=== PATIENT | male | born 1945 ===

== ENCOUNTER 2016-11-03 22:56 | Inpatient (IN) | payer MEDICARE ==
[~2016-11-03] VITALS: Ht 177.8 cm; Wt 87.0 kg
[2016-11-03] MEDS ORDERED: QUEtiapine FUMARATE 100 MG TABLET PO PRN (23:15)
[2016-11-03] MEDS ORDERED: ZOLPIDEM TARTRATE 10 MG TABLET PO PRN (23:15)
[2016-11-03] MEDS ORDERED: LORazepam 2 MG TABLET PO PRN (23:15)
[2016-11-03 23:30] VITALS: BP 145/78
[2016-11-04] MEDS ORDERED: PNEUMOCOCCAL VACCINE POLYVALENT 0.5 ML VIAL [PPSV23] IM ONE (03:15)
[2016-11-04] MEDS ORDERED: INFLUENZA VIRUS VACCINE QVS 2016-17 (3YR+)/PF 60 MCG/0.5 ML SYRINGE IM ONE (03:15)
[2016-11-04 06:54] LABS: BASOPHILS % (AUTO) 0.8 % (0.0-2.0); EOSINOPHILS % (AUTO) 3.7 % (1.0-6.0); HEMATOCRIT 37.3 % (41-53); HEMOGLOBIN 11.9 g/dL (13.5-17.5); LYMPHOCYTES # (AUTO) 1.4 K/uL (1.0-4.8); LYMPHOCYTES % (AUTO) 22.1 % (22.0-44.0); MEAN CORPUSCULAR HEMOGLOBIN 28.8 pg (26.0-34.0); MEAN CORPUSCULAR VOLUME 90 fL (80-100); MONOCYTES # (AUTO) 0.7 K/uL (0.1-1.0); MONOCYTES % (AUTO) 10.4 % (2.0-9.0); NEUTROPHILS # (AUTO) 4.1 K/uL (1.8-7.7); PLATELET COUNT (AUTO) 394 K/uL (150-450); RED BLOOD CELL COUNT(AUTO) 4.15 MIL/uL (4.50-5.90); RED CELL DISTRIBUTION WIDTH 13.1 % (11.5-14.5); WHITE BLOOD COUNT (AUTO) 6.5 K/uL (4.5-11.0)
[2016-11-04 07:08] LABS: ALANINE AMINOTRANSFERASE 22 U/L (12-78); ALBUMIN 2.9 g/dL (3.4-5.0); ANION GAP 9 mmol/L (8-16); ASPARTATE AMINOTRANSFERASE 16 U/L (15-37); BILIRUBIN,TOTAL 0.3 mg/dL (0.1-1.0); CALCIUM, TOTAL 8.4 mg/dL (8.8-10.5); CARBON DIOXIDE 26 mmol/L (22-29); CHLORIDE 105 mmol/L (98-107); CREATININE 0.67 mg/dL (0.60-1.30); GLOMERULAR FILTR. RATE CALC > 60 mL/min (>60); POTASSIUM 3.8 mmol/L (3.5-5.1); SODIUM SERUM 140 mmol/L (136-145); UREA NITROGEN, BLOOD 16 mg/dL (7-18)
[2016-11-04 08:00] VITALS: BP 140/97
[2016-11-04 16:42] VITALS: BP 144/87
[2016-11-04] MEDS: QUEtiapine FUMARATE 25 MG TABLET PO SCH (21:19)
[2016-11-05 06:53] VITALS: BP 142/89
[2016-11-05 06:56] LABS: BASOPHILS % (AUTO) 0.5 % (0.0-2.0); EOSINOPHILS % (AUTO) 1.8 % (1.0-6.0); HEMATOCRIT 36.3 % (41-53); HEMOGLOBIN 11.8 g/dL (13.5-17.5); LYMPHOCYTES # (AUTO) 1.5 K/uL (1.0-4.8); LYMPHOCYTES % (AUTO) 16.2 % (22.0-44.0); MEAN CORPUSCULAR HEMOGLOBIN 28.8 pg (26.0-34.0); MEAN CORPUSCULAR HGB CONC 32.3 G/dL (31.0-37.0); MEAN CORPUSCULAR VOLUME 89 fL (80-100); MONOCYTES # (AUTO) 0.8 K/uL (0.1-1.0); MONOCYTES % (AUTO) 8.8 % (2.0-9.0); NEUTROPHILS # (AUTO) 6.7 K/uL (1.8-7.7); NEUTROPHILS % (AUTO) 72.7 % (40.0-70.0); PLATELET COUNT (AUTO) 389 K/uL (150-450); RED BLOOD CELL COUNT(AUTO) 4.08 MIL/uL (4.50-5.90); RED CELL DISTRIBUTION WIDTH 13.5 % (11.5-14.5); WHITE BLOOD COUNT (AUTO) 9.2 K/uL (4.5-11.0)
[2016-11-05 07:15] LABS: ALANINE AMINOTRANSFERASE 23 U/L (12-78); ALBUMIN 2.9 g/dL (3.4-5.0); ANION GAP 6 mmol/L (8-16); ASPARTATE AMINOTRANSFERASE 17 U/L (15-37); BILIRUBIN,TOTAL 0.2 mg/dL (0.1-1.0); CALCIUM, TOTAL 8.1 mg/dL (8.8-10.5); CARBON DIOXIDE 30 mmol/L (22-29); CHLORIDE 106 mmol/L (98-107); CHOL/HDL RATIO 3.4 (4.2-7.3); CREATINE KINASE, TOTAL 51 U/L (39-308); CREATININE 0.77 mg/dL (0.60-1.30); GLOMERULAR FILTR. RATE CALC > 60 mL/min (>60); POTASSIUM 3.9 mmol/L (3.5-5.1); SODIUM SERUM 142 mmol/L (136-145); THYROID STIMULATING HORMONE 3.76 uIU/mL (0.36-3.74); TOTAL PROTEIN, SERUM 7.1 g/dL (6.4-8.2); UREA NITROGEN, BLOOD 15 mg/dL (7-18)
[2016-11-05 09:04] VITALS: BP 132/92
[2016-11-05 09:05] LABS: ERYTHROCYTE SEDIMENTATION RATE 30 MM/HR (0-15)
[2016-11-05] MEDS: ASPIRIN 81 MG EC TABLET PO SCH (10:33)
[2016-11-05 14:29] LABS: APPEARANCE,URINE CLEAR (CLEAR); GLUCOSE, URINE (UA) NEGATIVE (NEGATIVE); KETONES,URINE NEGATIVE (NEGATIVE); LEUKOCYTE ESTERASE ,URINE NEGATIVE (NEGATIVE); OCCULT BLOOD,URINE TRACE (NEGATIVE); PROTEIN,URINE NEGATIVE (NEGATIVE)
[2016-11-05 14:31] LABS: ADD UA MICROSCOPIC YES
[2016-11-05 14:41] LABS: RBC,URINE 0-2 /HPF (0-2); SQUAMOUS EPITHELIAL CELL,UR None Seen /LPF (None Seen); WBC,URINE None Seen /HPF (0-5)
[2016-11-05 17:00] VITALS: BP 154/100
[2016-11-05] MEDS: MEMANTINE HCL 5 MG TABLET PO SCH (22:11)
[2016-11-05] MEDS: DONEPEZIL HCL 5 MG TABLET PO SCH (22:11)
[2016-11-05] MEDS: QUEtiapine FUMARATE 25 MG TABLET PO SCH (22:12)
[2016-11-06 02:00] VITALS: BP 125/77
[2016-11-06 08:00] VITALS: BP 153/95
[2016-11-06 09:18] LABS: HEPATITIS Bs ANTIGEN SCREEN P Negative (Negative); HEPATITIS C AB SCREEN 0.3 s/co ratio (0.0-0.9)
[2016-11-06] MEDS: ASPIRIN 81 MG EC TABLET PO SCH (09:47)
[2016-11-06 19:23] VITALS: BP 136/87
[2016-11-06] MEDS: MEMANTINE HCL 5 MG TABLET PO SCH (20:07)
[2016-11-06] MEDS: DONEPEZIL HCL 5 MG TABLET PO SCH (20:07)
[2016-11-06] MEDS: QUEtiapine FUMARATE 25 MG TABLET PO SCH (20:07)
[2016-11-07 03:38] VITALS: BP 128/76
[2016-11-07 08:30] VITALS: BP 151/92
[2016-11-07] MEDS: ASPIRIN 81 MG EC TABLET PO SCH (09:00)
[2016-11-07 16:00] VITALS: BP 138/71
[2016-11-07] MEDS: QUEtiapine FUMARATE 25 MG TABLET PO SCH (21:24)
[2016-11-07] MEDS: DONEPEZIL HCL 5 MG TABLET PO SCH (21:24)
[2016-11-07] MEDS: MEMANTINE HCL 5 MG TABLET PO SCH (21:24)
[2016-11-08 05:02] VITALS: BP 155/98
[2016-11-08 08:22] VITALS: BP 148/97
[2016-11-08] MEDS: ASPIRIN 81 MG EC TABLET PO SCH (08:33)
[2016-11-08 16:43] VITALS: BP 147/90
[2016-11-08] MEDS: DONEPEZIL HCL 5 MG TABLET PO SCH (20:09)
[2016-11-08] MEDS: MEMANTINE HCL 5 MG TABLET PO SCH (20:09)
[2016-11-08] MEDS: QUEtiapine FUMARATE 25 MG TABLET PO SCH (20:09)
[2016-11-09 01:00] VITALS: BP 160/90
[2016-11-09 08:30] VITALS: BP 151/91
[2016-11-09] MEDS: ASPIRIN 81 MG EC TABLET PO SCH (09:12)
[2016-11-09 16:33] VITALS: BP 139/85
[2016-11-09] MEDS: MEMANTINE HCL 5 MG TABLET PO SCH (21:32)
[2016-11-09] MEDS: QUEtiapine FUMARATE 25 MG TABLET PO SCH (21:32)
[2016-11-09] MEDS: DONEPEZIL HCL 5 MG TABLET PO SCH (21:32)
[2016-11-10 05:49] VITALS: BP 148/62
[2016-11-10 08:00] VITALS: BP 153/92
[2016-11-10] MEDS: LISINOPRIL 10 MG TABLET PO SCH (08:31)
[2016-11-10] MEDS: ASPIRIN 81 MG EC TABLET PO SCH (08:31)
[2016-11-10 16:00] VITALS: BP 132/91
[2016-11-10] MEDS: QUEtiapine FUMARATE 25 MG TABLET PO SCH (20:29)
[2016-11-10] MEDS: DONEPEZIL HCL 5 MG TABLET PO SCH (20:29)
[2016-11-10] MEDS: MEMANTINE HCL 5 MG TABLET PO SCH (20:29)
[2016-11-11 08:00] VITALS: BP 153/89
[2016-11-11] MEDS: LISINOPRIL 10 MG TABLET PO SCH (09:13)
[2016-11-11] MEDS: ASPIRIN 81 MG EC TABLET PO SCH (09:13)
[2016-11-11 16:19] VITALS: BP 132/76
[2016-11-11] MEDS: MEMANTINE HCL 5 MG TABLET PO SCH (20:22)
[2016-11-11] MEDS: DONEPEZIL HCL 5 MG TABLET PO SCH (20:22)
[2016-11-11] MEDS: QUEtiapine FUMARATE 25 MG TABLET PO SCH (20:23)
[2016-11-12 08:00] VITALS: BP 150/77
[2016-11-12] MEDS: LISINOPRIL 20 MG TABLET PO SCH (08:36)
[2016-11-12] MEDS: ASPIRIN 81 MG EC TABLET PO SCH (08:37)
[2016-11-12 16:42] VITALS: BP 141/75
[2016-11-12] MEDS: CARVEDILOL 3.125 MG TABLET PO SCH (16:54)
[2016-11-12] MEDS: MEMANTINE HCL 5 MG TABLET PO SCH (20:43)
[2016-11-12] MEDS: DONEPEZIL HCL 5 MG TABLET PO SCH (20:43)
[2016-11-12] MEDS: QUEtiapine FUMARATE 25 MG TABLET PO SCH (20:44)
[2016-11-13 08:00] VITALS: BP 136/91
[2016-11-13] MEDS: LISINOPRIL 20 MG TABLET PO SCH (08:23)
[2016-11-13] MEDS: CARVEDILOL 3.125 MG TABLET PO SCH ×2 (08:23→16:39)
[2016-11-13] MEDS: ASPIRIN 81 MG EC TABLET PO SCH (08:23)
[2016-11-13 16:48] VITALS: BP 134/76
[2016-11-13] MEDS: QUEtiapine FUMARATE 25 MG TABLET PO SCH (20:08)
[2016-11-13] MEDS: DONEPEZIL HCL 5 MG TABLET PO SCH (20:08)
[2016-11-13] MEDS: MEMANTINE HCL 5 MG TABLET PO SCH (20:09)
[2016-11-14 02:40] VITALS: BP 131/79
[2016-11-14] MEDS: LISINOPRIL 20 MG TABLET PO SCH (09:08)
[2016-11-14] MEDS: AmLODIPine BESYLATE 5 MG TABLET PO SCH (09:08)
[2016-11-14] MEDS: CARVEDILOL 3.125 MG TABLET PO SCH ×2 (09:09→18:31)
[2016-11-14] MEDS: ASPIRIN 81 MG EC TABLET PO SCH (09:09)
[2016-11-14 10:28] VITALS: BP 150/91
[2016-11-14 16:06] VITALS: BP 121/78
[2016-11-14] MEDS: DONEPEZIL HCL 5 MG TABLET PO SCH (20:03)
[2016-11-14] MEDS: MEMANTINE HCL 5 MG TABLET PO SCH (20:03)
[2016-11-14] MEDS: QUEtiapine FUMARATE 25 MG TABLET PO SCH (20:03)
[2016-11-15] MEDS: LISINOPRIL 20 MG TABLET PO SCH (08:25)
[2016-11-15] MEDS: AmLODIPine BESYLATE 5 MG TABLET PO SCH (08:25)
[2016-11-15] MEDS: ASPIRIN 81 MG EC TABLET PO SCH (08:26)
[2016-11-15] MEDS: CARVEDILOL 3.125 MG TABLET PO SCH ×2 (08:26→18:36)
[2016-11-15 09:00] VITALS: BP 150/91
[2016-11-15 18:39] VITALS: BP 120/75
[2016-11-15] MEDS: DONEPEZIL HCL 5 MG TABLET PO SCH (20:35)
[2016-11-15] MEDS: MEMANTINE HCL 5 MG TABLET PO SCH (20:35)
[2016-11-15] MEDS: TAMSULOSIN HCL 0.4 MG CAPSULE PO SCH (20:35)
[2016-11-15] MEDS: QUEtiapine FUMARATE 25 MG TABLET PO SCH (20:35)
[2016-11-16 00:30] VITALS: BP 120/80
[2016-11-16 08:00] VITALS: BP 138/87
[2016-11-16] MEDS: ASPIRIN 81 MG EC TABLET PO SCH (09:07)
[2016-11-16] MEDS: CARVEDILOL 3.125 MG TABLET PO SCH ×2 (09:07→16:06)
[2016-11-16] MEDS: AmLODIPine BESYLATE 5 MG TABLET PO SCH (09:07)
[2016-11-16] MEDS: LISINOPRIL 20 MG TABLET PO SCH (09:07)
[2016-11-16 10:18] LABS: APPEARANCE,URINE CLEAR (CLEAR); GLUCOSE, URINE (UA) NEGATIVE (NEGATIVE); KETONES,URINE NEGATIVE (NEGATIVE); LEUKOCYTE ESTERASE ,URINE NEGATIVE (NEGATIVE); OCCULT BLOOD,URINE NEGATIVE (NEGATIVE); PH,URINE 5.5 (5.0-8.0); PROTEIN,URINE NEGATIVE (NEGATIVE)
[2016-11-16 10:19] LABS: ADD UA MICROSCOPIC NO
[2016-11-16 16:50] VITALS: BP 133/89
[2016-11-16] MEDS: QUEtiapine FUMARATE 100 MG TABLET PO SCH (20:03)
[2016-11-16] MEDS: DONEPEZIL HCL 5 MG TABLET PO SCH (20:03)
[2016-11-16] MEDS: MEMANTINE HCL 5 MG TABLET PO SCH (20:03)
[2016-11-16] MEDS: TAMSULOSIN HCL 0.4 MG CAPSULE PO SCH (20:03)
[2016-11-17 08:30] VITALS: BP 112/76
[2016-11-17] MEDS: CARVEDILOL 3.125 MG TABLET PO SCH ×2 (09:49→16:08)
[2016-11-17] MEDS: ASPIRIN 81 MG EC TABLET PO SCH (09:50)
[2016-11-17] MEDS: LISINOPRIL 20 MG TABLET PO SCH (09:50)
[2016-11-17] MEDS: AmLODIPine BESYLATE 5 MG TABLET PO SCH (09:50)
[2016-11-17 18:03] VITALS: BP 136/74
[2016-11-17] MEDS: QUEtiapine FUMARATE 100 MG TABLET PO SCH (20:37)
[2016-11-17] MEDS: MEMANTINE HCL 5 MG TABLET PO SCH (20:37)
[2016-11-17] MEDS: TAMSULOSIN HCL 0.4 MG CAPSULE PO SCH (20:37)
[2016-11-17] MEDS: DONEPEZIL HCL 5 MG TABLET PO SCH (20:37)
[2016-11-18 00:30] VITALS: BP 103/67
[2016-11-18 08:30] VITALS: BP 127/71
[2016-11-18] MEDS: LISINOPRIL 20 MG TABLET PO SCH (09:02)
[2016-11-18] MEDS: CARVEDILOL 3.125 MG TABLET PO SCH ×2 (09:03→16:39)
[2016-11-18] MEDS: ASPIRIN 81 MG EC TABLET PO SCH (09:03)
[2016-11-18] MEDS: AmLODIPine BESYLATE 5 MG TABLET PO SCH (09:03)
[2016-11-18 16:53] VITALS: BP 100/71
[2016-11-18] MEDS: MEMANTINE HCL 5 MG TABLET PO SCH (20:11)
[2016-11-18] MEDS: DONEPEZIL HCL 5 MG TABLET PO SCH (20:11)
[2016-11-18] MEDS: QUEtiapine FUMARATE 100 MG TABLET PO SCH (20:11)
[2016-11-18] MEDS: TAMSULOSIN HCL 0.4 MG CAPSULE PO SCH (20:11)
[2016-11-19 01:30] VITALS: BP 118/70
[2016-11-19 08:00] VITALS: BP 151/97
[2016-11-19] MEDS: AmLODIPine BESYLATE 5 MG TABLET PO SCH (09:13)
[2016-11-19] MEDS: ASPIRIN 81 MG EC TABLET PO SCH (09:13)
[2016-11-19] MEDS: CARVEDILOL 3.125 MG TABLET PO SCH ×2 (09:13→16:21)
[2016-11-19] MEDS: LISINOPRIL 20 MG TABLET PO SCH (09:13)
[2016-11-19 16:53] VITALS: BP 116/83
[2016-11-19] MEDS: TAMSULOSIN HCL 0.4 MG CAPSULE PO SCH (20:10)
[2016-11-19] MEDS: QUEtiapine FUMARATE 100 MG TABLET PO SCH (20:10)
[2016-11-19] MEDS: DONEPEZIL HCL 5 MG TABLET PO SCH (20:11)
[2016-11-19] MEDS: MEMANTINE HCL 5 MG TABLET PO SCH (20:11)
[2016-11-20 05:49] VITALS: BP 121/80
[2016-11-20 08:30] VITALS: BP 120/82
[2016-11-20] MEDS: AmLODIPine BESYLATE 5 MG TABLET PO SCH (09:04)
[2016-11-20] MEDS: LISINOPRIL 20 MG TABLET PO SCH (09:04)
[2016-11-20] MEDS: CARVEDILOL 3.125 MG TABLET PO SCH ×2 (09:04→16:13)
[2016-11-20] MEDS: ASPIRIN 81 MG EC TABLET PO SCH (09:04)
[2016-11-20 16:13] VITALS: BP 98/55
[2016-11-20] MEDS: MEMANTINE HCL 5 MG TABLET PO SCH (19:56)
[2016-11-20] MEDS: QUEtiapine FUMARATE 100 MG TABLET PO SCH (19:56)
[2016-11-20] MEDS: DONEPEZIL HCL 5 MG TABLET PO SCH (19:56)
[2016-11-20] MEDS: TAMSULOSIN HCL 0.4 MG CAPSULE PO SCH (19:56)
[2016-11-20 20:05] VITALS: BP 112/79
[2016-11-21] MEDS: MEMANTINE HCL 5 MG TABLET PO SCH ×2 (08:29→16:31)
[2016-11-21] MEDS: ASPIRIN 81 MG EC TABLET PO SCH (08:29)
[2016-11-21 08:30] VITALS: BP 107/73
[2016-11-21] MEDS: AmLODIPine BESYLATE 5 MG TABLET PO SCH (08:30)
[2016-11-21] MEDS: CARVEDILOL 3.125 MG TABLET PO SCH ×2 (08:30→16:18)
[2016-11-21] MEDS: LISINOPRIL 20 MG TABLET PO SCH (08:30)
[2016-11-21 16:30] VITALS: BP 126/76
[2016-11-21] MEDS: TAMSULOSIN HCL 0.4 MG CAPSULE PO SCH (21:03)
[2016-11-21] MEDS: DONEPEZIL HCL 10 MG TABLET PO SCH (21:04)
[2016-11-21] MEDS: QUEtiapine FUMARATE 100 MG TABLET PO SCH (21:04)
[2016-11-22 08:00] VITALS: BP 155/96
[2016-11-22] MEDS: CARVEDILOL 3.125 MG TABLET PO SCH ×2 (08:23→16:04)
[2016-11-22] MEDS: MEMANTINE HCL 5 MG TABLET PO SCH ×2 (08:23→16:04)
[2016-11-22] MEDS: ASPIRIN 81 MG EC TABLET PO SCH (08:23)
[2016-11-22] MEDS: AmLODIPine BESYLATE 5 MG TABLET PO SCH (08:23)
[2016-11-22] MEDS: LISINOPRIL 20 MG TABLET PO SCH (08:23)
[2016-11-22 16:13] VITALS: BP 107/67
[2016-11-22] MEDS: TAMSULOSIN HCL 0.4 MG CAPSULE PO SCH (19:56)
[2016-11-22] MEDS: QUEtiapine FUMARATE 100 MG TABLET PO SCH (19:56)
[2016-11-22] MEDS: DONEPEZIL HCL 10 MG TABLET PO SCH (19:56)
[2016-11-23] MEDS: ASPIRIN 81 MG EC TABLET PO SCH (08:58)
[2016-11-23] MEDS: CARVEDILOL 3.125 MG TABLET PO SCH (08:58)
[2016-11-23] MEDS: MEMANTINE HCL 5 MG TABLET PO SCH (08:59)
[2016-11-23] MEDS: AmLODIPine BESYLATE 5 MG TABLET PO SCH (08:59)
[2016-11-23] MEDS: LISINOPRIL 20 MG TABLET PO SCH (09:00)
[2016-11-23 09:12] VITALS: BP 110/65
[2016-11-23] MEDS ORDERED: QUET100T PO (09:31)
[2016-11-23] MEDS ORDERED: AMLO-511 PO (09:33)
[2016-11-23] MEDS ORDERED: DONE10TA PO (09:33)
[2016-11-23] MEDS ORDERED: ASPI81 PO (09:33)
[2016-11-23] MEDS ORDERED: CARV3 PO (09:33)
[2016-11-23] MEDS ORDERED: TAMS0.4C32 PO (09:34)
[2016-11-23] MEDS ORDERED: LISI-662 PO (09:34)
[2016-11-23] MEDS ORDERED: MEMA5 PO (09:34)
== END 2016-11-23 10:50 | DRG 884 ==
LOC: 3EX 23:00
DX: F03.90 Unspecified dementia, unspecified severity, without behavioral disturbance, psychotic disturbance, mood disturbance, and anxiety (principal); F20.0 Paranoid schizophrenia; D64.9 Anemia, unspecified; N40.0 Benign prostatic hyperplasia without lower urinary tract symptoms; I10 Essential (primary) hypertension; E88.09 Other disorders of plasma-protein metabolism, not elsewhere classified; E03.9 Hypothyroidism, unspecified; Z86.73 Personal history of transient ischemic attack (TIA), and cerebral infarction without residual deficits; Z91.19 Patient's noncompliance with other medical treatment and regimen; Z28.21 Immunization not carried out because of patient refusal; Z59.0 Homelessness; Z87.81 Personal history of (healed) traumatic fracture; Z87.891 Personal history of nicotine dependence
CPT/HCPCS: 70450; 76770; 80074; 82306; 82607; 82746; 83036; 83735; 84153; 84439; 84443; 85651; 86592; 87081